=== PATIENT | male | born 1945 | race Caucasian/White ===

== ENCOUNTER 2019-03-23 12:18 | Inpatient (IN) | payer MEDICARE, OTHER ==
[~2019-03-23] VITALS: Ht 165.1 cm; Wt 77.1 kg
[2019-03-23] MEDS ORDERED: ATOR40TA PO (12:44)
[2019-03-23] MEDS ORDERED: ALPR0.5T8 PO (12:44)
[2019-03-23] MEDS ORDERED: TAMS-3 PO (12:44)
[2019-03-23] MEDS ORDERED: HYDR-4354 PO (12:44)
[2019-03-23] MEDS ORDERED: GABA100C PO (12:44)
[2019-03-23] MEDS ORDERED: TRAZ-182 PO (12:44)
[2019-03-23] MEDS ORDERED: AMLO2.5T4 PO (12:44)
[2019-03-23] MEDS ORDERED: ACET325T53 PO (12:44)
[2019-03-23] MEDS ORDERED: LURA60TA PO (12:44)
[2019-03-23] MEDS ORDERED: ZOLP5TAB8 PO (12:44)
[2019-03-23] MEDS ORDERED: OXCA150T13 PO (12:44)
--- NOTE | 2019-03-23 13:00 | NUR ---
PT IS IN ROOM #1B. DR PARKS EVALUATED THE PT.
[2019-03-23] MEDS ORDERED: HYDROCODONE/APAP 5-325MG TABLET PO ONE (13:15)
[2019-03-23 13:18] LABS: BASOPHILS # (AUTO) 0.1 K/uL (0.0-8.0); BASOPHILS % (AUTO) 1.1 % (0.0-2.0); EOSINOPHILS # (AUTO) 0.4 K/uL (0.0-0.7); EOSINOPHILS % (AUTO) 6.6 % (0.0-7.0); HEMATOCRIT 37.2 % (36.7-47.1); HEMOGLOBIN 12.9 g/dL (12.5-16.3); LYMPHOCYTES # (AUTO) 1.8 K/uL (20.0-40.0); LYMPHOCYTES % (AUTO) 30.9 % (20.5-51.5); MEAN CORPUSCULAR HEMOGLOBIN 30.9 uug (23.8-33.4); MEAN CORPUSCULAR HGB CONC 35 g/dL (32.5-36.3); MONOCYTES # (AUTO) 0.5 K/uL (2.0-10.0); MONOCYTES % (AUTO) 8.5 % (0.0-11.0); NEUTROPHILS # (AUTO) 3.1 K/uL (1.8-8.9); NEUTROPHILS % (AUTO) 52.9 % (38.5-71.5); PLATELET COUNT (AUTO) 219 K/uL (152-348); RED BLOOD CELL COUNT(AUTO) 4.18 MIL/uL (4.06-5.63); WHITE BLOOD COUNT (AUTO) 5.8 K/uL (3.6-10.2)
[2019-03-23] MEDS ORDERED: HYDROCODONE/APAP 5-325MG TABLET ONE (13:20)
[2019-03-23 13:24] LABS: CARBON DIOXIDE 25 mmol/L (21-32); CHLORIDE 95 mmol/L (98-107); CREATININE 0.7 mg/dL (0.6-1.3); GLUCOSE 100 mg/dL (74-106); UREA NITROGEN, BLOOD 10 mg/dL (7-18)
[2019-03-23 13:30] LABS: ALANINE AMINOTRANSFERASE 20 U/L (16-63); ALKALINE PHOSPHATASE 74 U/L (50-136); ASPARTATE AMINOTRANSFERASE 16 U/L (15-37); BILIRUBIN,DIRECT 0.1 mg/dL (0.0-0.2); BILIRUBIN,TOTAL 0.2 mg/dL (0.2-1.0); TOTAL PROTEIN, SERUM 6.2 g/dL (6.4-8.2)
[2019-03-23] MEDS ORDERED: IV NORMAL SALINE 500 ML BAG IV ONE (13:45)
[2019-03-23] MEDS ORDERED: AMOXIcillin 500 MG CAPSULE PO SCH (14:15)
[2019-03-23] MEDS ORDERED: IBUPROFEN 400 MG TABLET PO PRN (14:15)
--- NOTE | 2019-03-23 14:29 | NUR ---
REPORT WAS GIVEN TO RN M/S. PT WAS TRANSFERED TO ROOM #308.
--- NOTE | 2019-03-23 14:45 | NUR ---
Patient admitted from [facility] to ER with chief compliant left sided facial and arm pain 4/10 ; admitted with a diagnosis of intractable pain of left face. Routine admission assessment initiated and will MD for admission orders.
[2019-03-23 14:58] VITALS: BP 125/60
[2019-03-23] MEDS ORDERED: OXCARBAZEPINE 150 MG TABLET PO SCH (17:15)
[2019-03-23] MEDS ORDERED: ACETAMINOPHEN 325 MG TABLET PO PRN (17:30)
[2019-03-23] MEDS ORDERED: ONDANSETRON 4 MG/2 ML VIAL IV PRN (17:30)
[2019-03-23] MEDS: GABAPENTIN 100 MG CAPSULE PO SCH (18:08)
--- NOTE | 2019-03-23 18:16 | NUR ---
Patient ANOX3 ; patient pain under control ; vital signs stable. Patient calm in comfortable in bed watching tv.
--- NOTE | 2019-03-23 19:31 | NUR ---
Rec'd patient in bed asleep, no s/s of acute distress noted. On RA. Easily arousable to name. Denies pain at this time. All safety precautions in place. Will monitor.
[2019-03-23] MEDS: TAMSULOSIN HCL 0.4 MG CAP.SR.24H PO SCH (20:14)
[2019-03-23] MEDS: ATORVASTATIN 40 MG TABLET PO SCH (20:14)
[2019-03-23] MEDS: TRAZODONE 50 MG TABLET PO SCH (20:14)
[2019-03-23 20:37] VITALS: BP 155/66
[2019-03-23] MEDS ORDERED: ZOLPIDEM 5 MG TABLET PO SCH (21:00)
[2019-03-24] MEDS: ALPRAZOLAM 0.5 MG TABLET PO SCH ×4 (00:08→22:05)
[2019-03-24] MEDS: HYDROCODONE/APAP 10-325 MG TABLET PO PRN ×2 (00:09→08:33)
--- NOTE | 2019-03-24 00:10 | NUR ---
Pt requesting for Xanax. Per patient he usually takes Xanax with Ambien to sleep. Offered non-drug interventions, patient not agreeable. Relayed to Dr. Chew and obtained new order to change Xanax 0.5mg PO TID to Q8hrs. New order read back and verified. Pt made aware.
[2019-03-24] MEDS ORDERED: MELATONIN 3 MG TABLET PO PRN ×2 (03:00→07:30)
--- NOTE | 2019-03-24 03:07 | NUR ---
Pt is complaining that nothing is working to help him sleep. Per patient the Ambien only helped for 2 hrs, then the Xanax only helped for a little bit and now he is wide awake again. Noted patient anxious and agitated. Per pt he usually takes 3tabs of Melatonin at the longterm and that this is the only regimen that works for him. Offered non-drug interventions to help him sleep however patient just became more agitated. VSS. Relayed to Dr. Carvajal (second cook and baker) and obtained new order for Melatonin 9mg (3tabs of 3mg) PO QHS PRN. Telephone order read back and verified. Noted and carried out. Pt made aware. Per pt this should help him sleep until it is time for breakfast. No further complaints at this time. All safety precautions in place. Will continue to monitor.
[2019-03-24] MEDS: GABAPENTIN 100 MG CAPSULE PO SCH (06:03)
[2019-03-24] MEDS: PANTOPRAZOLE SODIUM 40 MG TABLET.DR PO SCH (06:03)
[2019-03-24 06:09] VITALS: BP 124/53
[2019-03-24 06:46] LABS: BASOPHILS # (AUTO) 0.1 K/uL (0.0-8.0); BASOPHILS % (AUTO) 1.3 % (0.0-2.0); EOSINOPHILS # (AUTO) 0.4 K/uL (0.0-0.7); HEMATOCRIT 37.4 % (36.7-47.1); HEMOGLOBIN 12.6 g/dL (12.5-16.3); LYMPHOCYTES # (AUTO) 1.9 K/uL (20.0-40.0); LYMPHOCYTES % (AUTO) 37.5 % (20.5-51.5); MEAN CORPUSCULAR HEMOGLOBIN 29.8 uug (23.8-33.4); MEAN CORPUSCULAR HGB CONC 34 g/dL (32.5-36.3); MEAN CORPUSCULAR VOLUME 88.5 fL (73.0-96.2); MONOCYTES # (AUTO) 0.3 K/uL (2.0-10.0); MONOCYTES % (AUTO) 6.5 % (0.0-11.0); NEUTROPHILS # (AUTO) 2.4 K/uL (1.8-8.9); NEUTROPHILS % (AUTO) 47.7 % (38.5-71.5); PLATELET COUNT (AUTO) 198 K/uL (152-348); RED BLOOD CELL COUNT(AUTO) 4.23 MIL/uL (4.06-5.63)
[2019-03-24 07:09] LABS: THYROID STIMULATING HORMONE 4.423 mIU/mL (0.358-3.740)
[2019-03-24 07:18] LABS: ALANINE AMINOTRANSFERASE 19 U/L (16-63); ALKALINE PHOSPHATASE 76 U/L (50-136); ASPARTATE AMINOTRANSFERASE 15 U/L (15-37); BILIRUBIN,TOTAL 0.3 mg/dL (0.2-1.0); CARBON DIOXIDE 26 mmol/L (21-32); CHLORIDE 98 mmol/L (98-107); CHOLESTEROL 109 mg/dL (<200); CREATININE 0.6 mg/dL (0.6-1.3); GLUCOSE 88 mg/dL (74-106); HDL CHOLESTEROL 48 mg/dL (40-60); MAGNESIUM 1.8 mg/dL (1.8-2.4); PHOSPHOROUS 4.7 mg/dL (2.5-4.9); POTASSIUM 4.3 mmol/L (3.5-5.1); TOTAL PROTEIN, SERUM 5.8 g/dL (6.4-8.2); TRIGLYCERIDES 53 MG/DL (30-150); UREA NITROGEN, BLOOD 7 mg/dL (7-18)
--- NOTE | 2019-03-24 08:00 | NUR ---
IN BED WITH EYES CLOSE NO SS OF PAIN. GOOD APPETITE WITH MEALS. INDEPENDENT WITH BED MOBILITY. CONTINUE WITH PAIN OBSERVATION
[2019-03-24] MEDS: AMLODIPINE 2.5 MG TABLET PO SCH (08:31)
[2019-03-24] MEDS: OXCARBAZEPINE 300 MG TABLET PO SCH ×3 (08:31→17:04)
[2019-03-24] MEDS ORDERED: ALPRAZOLAM 0.5 MG TABLET PO SCH (09:00)
[2019-03-24 11:15] VITALS: BP 100/58
[2019-03-24] MEDS: GABAPENTIN 300 MG CAPSULE PO SCH ×2 (11:41→17:04)
--- NOTE | 2019-03-24 11:44 | NUR ---
RESTING COMFORTABLY IN BED NO SS OF ACUTE PAIN, CONTINUE WITH CURRENT TX ORDERED
[2019-03-24 16:00] VITALS: BP 102/56
[2019-03-24] MEDS: LATUDA 60 MG PO SCH (17:04)
[2019-03-24 19:57] VITALS: BP 128/67
--- NOTE | 2019-03-24 20:00 | NUR ---
Rec'd patient in bed with eyes closed. No s/s of acute distress noted. Independent with bed mobility. Continue with pain observation. All safety precautions in place. Will cont to monitor.
[2019-03-24] MEDS ORDERED: GABAPENTIN 100 MG CAPSULE PO SCH (21:00)
[2019-03-24] MEDS: TRAZODONE 50 MG TABLET PO SCH (21:04)
[2019-03-24] MEDS: TAMSULOSIN HCL 0.4 MG CAP.SR.24H PO SCH (21:04)
[2019-03-24] MEDS: ATORVASTATIN 40 MG TABLET PO SCH (21:05)
[2019-03-24] MEDS: ZOLPIDEM 5 MG TABLET PO SCH (21:05)
[2019-03-25] MEDS: HYDROCODONE/APAP 10-325 MG TABLET PO PRN (01:52)
[2019-03-25 05:11] VITALS: BP 125/60
[2019-03-25] MEDS: PANTOPRAZOLE SODIUM 40 MG TABLET.DR PO SCH (06:12)
[2019-03-25] MEDS: ALPRAZOLAM 0.5 MG TABLET PO SCH ×4 (06:12→23:08)
--- NOTE | 2019-03-25 07:15 | NUR ---
RECEIVED PATIENT IN BED RESTING, NO SIGNS OF DISTRESS OR DISCOMFORT. BED IN LOWEST POSITION, SIDE RAILS UP X2, CALL LIGHT WITHIN REACH. WILL CONTINUE TO MONITOR.
[2019-03-25] MEDS: OXCARBAZEPINE 300 MG TABLET PO SCH ×3 (08:47→16:17)
[2019-03-25] MEDS: LATUDA 60 MG PO SCH (08:48)
[2019-03-25] MEDS: GABAPENTIN 300 MG CAPSULE PO SCH ×3 (08:48→16:17)
[2019-03-25] MEDS: AMLODIPINE 2.5 MG TABLET PO SCH (09:27)
[2019-03-25 11:16] VITALS: BP 116/48
[2019-03-25 15:21] VITALS: BP 119/59
[2019-03-25] MEDS ORDERED: OXCARBAZEPINE 300 MG TABLET PO SCH (17:00)
--- NOTE | 2019-03-25 18:31 | NUR ---
PATIENT RESTED INTERMITTENTLY THROUGHOUT DAY. NO DISTRESS NOTED THROUGHOUT SHIFT. PATIENT DENIED PAIN, RATED PAIN 2/10 DURING SHIFT. SAFETY MAINTAINED.BED IN LOWEST POSITION, SIDE RAILS UP X2, CALL LIGHT WITHIN REACH.
--- NOTE | 2019-03-25 20:00 | NUR ---
RECEIVED PATIENT AWAKE IN BED, WATCHING TV. PATIENT IS A/O X3. DENIES PAIN OR DISCOMFORT. NO RESP. DISTRESS NOTED. VSS. H/L INTACT AND PATENT. CALL LIGHT IN REACH. ALL NEEDS ATTENDED. WILL CONTINUE TO MONITOR AND ASSESS.
[2019-03-25 20:22] VITALS: BP 107/60
[2019-03-25] MEDS: TRAZODONE 50 MG TABLET PO SCH (20:24)
[2019-03-25] MEDS: TAMSULOSIN HCL 0.4 MG CAP.SR.24H PO SCH (20:24)
[2019-03-25] MEDS: ZOLPIDEM 5 MG TABLET PO SCH (20:25)
[2019-03-25] MEDS ORDERED: ATORVASTATIN 10 MG TABLET PO SCH (21:00)
[2019-03-26] MEDS: HYDROCODONE/APAP 10-325 MG TABLET PO PRN (03:14)
[2019-03-26 04:37] VITALS: BP 115/72
[2019-03-26] MEDS: PANTOPRAZOLE SODIUM 40 MG TABLET.DR PO SCH (06:16)
[2019-03-26] MEDS: ALPRAZOLAM 0.5 MG TABLET PO SCH ×2 (06:16→13:05)
--- NOTE | 2019-03-26 06:35 | NUR ---
PATIENT AWAKE IN BED. SLEPT WELL THROUGHOUT THE NIGHT. VSS. CALL LIGHT IN REACH. ALL NEEDS ATTENDED. WILL CONTINUE TO MONITOR AND ASSESS.
--- NOTE | 2019-03-26 07:20 | NUR ---
Received patient awake in bed resting, alert and oriented x3. No distress noted at this time. Bed in lowest position, side rails up x2, call light within reach will continue to monitor.
[2019-03-26] MEDS: AMLODIPINE 2.5 MG TABLET PO SCH (09:00)
[2019-03-26] MEDS ORDERED: OXCARBAZEPINE 300 MG TABLET PO SCH (09:00)
[2019-03-26] MEDS: LATUDA 60 MG PO SCH (09:21)
[2019-03-26] MEDS: GABAPENTIN 300 MG CAPSULE PO SCH ×2 (09:21→13:05)
[2019-03-26 09:57] VITALS: BP 101/46
[2019-03-26 11:30] VITALS: BP 111/50
[2019-03-26] MEDS ORDERED: OXCA300T4 PO (11:47)
[2019-03-26] MEDS ORDERED: ACET325T53 PO (11:47)
[2019-03-26] MEDS ORDERED: TAMS-3 PO (11:47)
[2019-03-26] MEDS ORDERED: ALPR0.5T PO (11:47)
[2019-03-26] MEDS ORDERED: MULT1TAB73 PO (11:47)
[2019-03-26] MEDS ORDERED: GABA-534 PO (11:47)
[2019-03-26] MEDS ORDERED: ZOLP5TAB8 PO (11:47)
[2019-03-26] MEDS ORDERED: PANT40TA2 PO (11:47)
[2019-03-26] MEDS ORDERED: ATOR10TA PO (11:47)
[2019-03-26] MEDS ORDERED: ALBU2.5V38 NEB (11:50)
[2019-03-26 15:54] VITALS: BP 115/49
--- NOTE | 2019-03-26 16:00 | NUR ---
DISCHARGED PATIENT VIA AMBULANCE TO [facility]. REVIEWED D/C INSTRUCTIONS WITH PATIENT, PATIENT VERBALIZES UNDERSTANDING. REPORT GIVEN TO JOSE F INIGUEZ EMT. PATIENT IN NO DISTRESS AT THIS TIME.
== END 2019-03-26 16:00 | DRG 74 ==
LOC: ER 12:18 → MEDSURG3 13:53
PROVIDERS: ADMIT Internal Medicine; ATTEND Internal Medicine
DX: G50.0 Trigeminal neuralgia (principal); E87.1 Hypo-osmolality and hyponatremia; D68.59 Other primary thrombophilia; I67.82 Cerebral ischemia; G40.909 Epilepsy, unspecified, not intractable, without status epilepticus; N40.0 Benign prostatic hyperplasia without lower urinary tract symptoms; Z86.74 Personal history of sudden cardiac arrest; H66.92 Otitis media, unspecified, left ear; E78.5 Hyperlipidemia, unspecified; F31.9 Bipolar disorder, unspecified; G47.00 Insomnia, unspecified; F17.210 Nicotine dependence, cigarettes, uncomplicated; R26.81 Unsteadiness on feet; M54.10 Radiculopathy, site unspecified; Z91.5 Personal history of self-harm; I10 Essential (primary) hypertension; F12.90 Cannabis use, unspecified, uncomplicated; Z74.09 Other reduced mobility; F41.9 Anxiety disorder, unspecified; F10.11 Alcohol abuse, in remission; Y90.9 Presence of alcohol in blood, level not specified
CPT/HCPCS: 36415; 70030-TC; 70450; 71045; 83735; 84100; 84443; 85025; 85730; 93005; 97116; 97530; A4663; G0378; J7030